=== PATIENT | female | born 2000 | race African-American/Black ===

== ENCOUNTER 2022-08-13 15:00 | Emergency (ER) | payer MEDICAID ==
[~2022-08-13] VITALS: Ht 160 cm; Wt 52.6 kg
--- NOTE | 2022-08-13 16:14 | NUR ---
Patient discharged to home in stable condition. Written and verbal after care instructions given. Patient verbalizes understanding of instruction.
[2022-08-13 16:15] VITALS: BP 110/64
== END 2022-08-13 16:15 | disposition home or self-care (01) ==
LOC: ER 15:03
DX: H11.31 Conjunctival hemorrhage, right eye (principal)